=== PATIENT | female | born 1990 | race Caucasian/White ===

== ENCOUNTER → 2023-07-16 08:02 | Outpatient (REF) | payer OTHER, SELFPAY | LOC: PNTC 08:02 | PROVIDERS: ATTENDING PHYSICIAN Obstetrics & Gynecology | DX: O09.299 Supervision of pregnancy with other poor reproductive or obstetric history, unspecified trimester (principal); E03.9 Hypothyroidism, unspecified | CPT/HCPCS: 76805 ==

== ENCOUNTER → 2023-08-22 07:03 | Outpatient (REF) | payer OTHER, SELFPAY | LOC: PNTC 07:03 | PROVIDERS: ATTENDING PHYSICIAN Obstetrics & Gynecology | DX: O99.280 Endocrine, nutritional and metabolic diseases complicating pregnancy, unspecified trimester (principal) | CPT/HCPCS: 76811 ==

== ENCOUNTER → 2023-11-07 08:08 | Outpatient (REF) | payer OTHER, SELFPAY | LOC: PNTC 08:08 | PROVIDERS: ATTENDING PHYSICIAN Obstetrics & Gynecology | DX: O99.280 Endocrine, nutritional and metabolic diseases complicating pregnancy, unspecified trimester (principal); O99.320 Drug use complicating pregnancy, unspecified trimester | CPT/HCPCS: 76816 ==

== ENCOUNTER → 2023-12-02 07:08 | Outpatient (REF) | payer OTHER, SELFPAY | LOC: PNTC 07:08 | PROVIDERS: ATTENDING PHYSICIAN Nurse Practitioner Family | DX: Z34.93 Encounter for supervision of normal pregnancy, unspecified, third trimester (principal); O99.280 Endocrine, nutritional and metabolic diseases complicating pregnancy, unspecified trimester; P08.1 Other heavy for gestational age newborn | CPT/HCPCS: 76816 ==

== ENCOUNTER 2024-01-02 20:09 | Inpatient (IN) | payer OTHER, SELFPAY ==
[2024-01-02 20:24] VITALS: BMI 32.1
[2024-01-02 20:31] VITALS: BP 136/79
[2024-01-02] MEDS: LR 1000 IV (20:56)
[2024-01-02 21:02] LABS: % Basophils 0.4 % (0-2); % Eosinophils 1.8 % (0-6); % Immature Granulocytes 0.4 % (0-0.5); % Lymphocytes 21.4 % (20.5-51.1); % Monocytes 6.9 % (1.7-9.3); % Neutrophils 69.1 % (42.2-75.2); Absolute Eosinophils 0.2 10^3/uL (0-0.7); Absolute Lymphocytes 2.2 10^3/uL (1.2-3.4); Absolute Monocytes 0.7 10^3/uL (0.1-0.6); Absolute Neutrophils 7.2 10^3/uL (1.4-6.5); Hematocrit 32.3 % (37.0-47.0); Hemoglobin 11.2 g/dL (12.0-16.0); Mean Corp Hgb Conc. 34.7 g/dL (33.0-37.0); Mean Corpuscular Hgb 29.6 pg (27.0-31.0); Mean Corpuscular Volume 85.2 fL (81.0-99.0); Mean Platelet Volume 11.5 fL (7.4-10.4); Nucleated Red Blood Cells % 0 %; Platelet Count 218 10^3/uL (130-400); Red Blood Cell Count 3.79 10^6/uL (4.20-5.40); Red Cell Dist. Width 14.4 % (11.5-14.5); White Blood Cell Count 10.4 10^3/uL (4.8-10.8)
[2024-01-02] MEDS: CYTOTEC 25 MICROGRAM VAG (21:08)
[2024-01-03] MEDS: PRENATAL PLUS PO ×2 (00:21→14:24)
[2024-01-03] MEDS: CYTOTEC 50 MICROGRAM PO ×2 (01:06→05:03)
[2024-01-03] MEDS: SYNTHROID 100 MCG PO (06:07)
[2024-01-03] MEDS: CYTOTEC PO ×3 (14:23→18:17)
[2024-01-03] MEDS: PITOCIN 30 UNITS/NSS 500 ML IV (18:15)
[2024-01-03] MEDS: LR 1000 IV (18:15)
[2024-01-03] MEDS: SUBLIMAZE 100 MCG EPIDURAL (21:31)
[2024-01-03] MEDS: FENTANYL/BUPIVACAINE 100 EPIDURAL (21:31)
[2024-01-04] MEDS: FENTANYL/BUPIVACAINE 100 EPIDURAL ×2 (04:40→13:29)
[2024-01-04] MEDS: SYNTHROID 100 MCG PO (06:16)
[2024-01-04] MEDS: LR 1000 IV (07:15)
[2024-01-04] MEDS: BICITRA 30 ML PO (16:15)
[2024-01-04] MEDS: TYLENOL 1000 MG PO (16:15)
[2024-01-04] MEDS: ANCEF 10 IV (16:16)
[2024-01-04] MEDS: ZITHROMAX INFUSION 250 IV (16:45)
[2024-01-04] MEDS: PITOCIN 30 UNITS/NSS 500 ML IV ×2 (16:45→21:10)
[2024-01-04] MEDS: CYTOTEC PO (18:11)
[2024-01-04] MEDS: TORADOL 15 MG IV (18:32)
[2024-01-04] MEDS: TYLENOL 650 MG PO (21:31)
[2024-01-04] MEDS: PRENATAL PLUS 1 TABLET PO (21:31)
[2024-01-05] MEDS: TORADOL 15 MG IV ×3 (00:03→11:38)
[2024-01-05] MEDS: MYLICON 80 MG PO ×3 (01:37→20:32)
[2024-01-05 05:11] LABS: Hematocrit 27.5 % (37.0-47.0); Hemoglobin 9.6 g/dL (12.0-16.0); Mean Corp Hgb Conc. 34.9 g/dL (33.0-37.0); Mean Corpuscular Hgb 30.1 pg (27.0-31.0); Mean Corpuscular Volume 86.2 fL (81.0-99.0); Platelet Count 147 10^3/uL (130-400); Red Blood Cell Count 3.19 10^6/uL (4.20-5.40); Red Cell Dist. Width 14.4 % (11.5-14.5); White Blood Cell Count 14.7 10^3/uL (4.8-10.8)
[2024-01-05] MEDS: SYNTHROID 100 MCG PO (05:37)
[2024-01-05] MEDS: SENOKOT-S 1 TABLET PO (05:37)
[2024-01-05] MEDS: FLUSH (NSS) 1 FLUSH IV (05:39)
[2024-01-05] MEDS: TYLENOL 650 MG PO ×3 (09:13→20:33)
[2024-01-05] MEDS: FEOSOL 325 MG PO (11:50)
[2024-01-05] MEDS: MOTRIN 600 MG PO (17:37)
--- NOTE | 2024-01-05 19:08 | W.PN.ANS.POP ---
Anesthesia Post Operative
- Anesthesia Post Op Note
Vital Signs Stable-See Nursing Note: Yes
Airway Patent: Yes
Adequate Pain Control: Yes
Change in Mental Status: No
Current Postoperative Nausea & Vomiting: No
Anesthesia Complications: No
General Anesthetic Recall: No
Unplanned Admission: No
Post Op Hydration Adequate: Yes
[2024-01-05] MEDS: PRENATAL PLUS 1 TABLET PO (21:43)
[2024-01-06] MEDS: TYLENOL 650 MG PO ×4 (00:59→19:18)
[2024-01-06] MEDS: MOTRIN 600 MG PO ×4 (00:59→19:18)
[2024-01-06] MEDS: SYNTHROID 100 MCG PO (06:02)
[2024-01-06] MEDS: MYLICON 80 MG PO (07:09)
[2024-01-06] MEDS: FEOSOL 325 MG PO (08:07)
[2024-01-06] MEDS: PRENATAL PLUS 1 TABLET PO (22:36)
[2024-01-07] MEDS: TYLENOL 650 MG PO (04:07)
[2024-01-07] MEDS: MOTRIN 600 MG PO (04:07)
[2024-01-07] MEDS: SYNTHROID 100 MCG PO (07:02)
[2024-01-07] MEDS: FEOSOL 325 MG PO (07:02)
[2024-01-07 13:50] LABS: Syphilis/T. pallidum Ab Reflex Negative (Negative)
== END 2024-01-07 11:45 | disposition home or self-care (01) | DRG 788 ==
LOC: LDRP 20:09
PROVIDERS: Obstetrics & Gynecology; ADMITTING PHYSICIAN Obstetrics & Gynecology; ATTENDING PHYSICIAN Obstetrics & Gynecology; FAMILY PHYSICIAN Family Medicine
PROC: 3E033VJ Introduction of Other Hormone into Peripheral Vein, Percutaneous Approach (ICD-10-PCS; 2024-01-02)
PROC: 3E0P7GC Introduction of Other Therapeutic Substance into Female Reproductive, Via Natural or Artificial Opening (ICD-10-PCS; 2024-01-02)
PROC: 10907ZC Drainage of Amniotic Fluid, Therapeutic from Products of Conception, Via Natural or Artificial Opening (ICD-10-PCS; 2024-01-04)
PROC: 10D00Z1 Extraction of Products of Conception, Low, Open Approach (ICD-10-PCS; 2024-01-04)
DX: O48.0 Post-term pregnancy (principal); Z37.0 Single live birth; O64.0XX0 Obstructed labor due to incomplete rotation of fetal head, not applicable or unspecified; O99.284 Endocrine, nutritional and metabolic diseases complicating childbirth; O99.02 Anemia complicating childbirth; E06.3 Autoimmune thyroiditis; O66.5 Attempted application of vacuum extractor and forceps; O76 Abnormality in fetal heart rate and rhythm complicating labor and delivery; O62.1 Secondary uterine inertia; Z79.890 Hormone replacement therapy; Z3A.40 40 weeks gestation of pregnancy; Z88.0 Allergy status to penicillin
CPT/HCPCS: 36415; 85025; 85027; 86780; 86850; 86900; 86901